=== PATIENT | male | born 1965 | race Caucasian/White ===

== ENCOUNTER 2017-02-18 21:18 | Inpatient (IN) | payer OTHER ==
--- NOTE | 2017-02-18 22:10 | HP ---
CIWA Score - CIWA Score Nausea/Vomitin Muscle Tremors: 4-Moderate,w/Arms Extend Anxiety: 3 Agitation: 5 Paroxysmal Sweats: 4-Forehead w/Sweat Beads Orientation: 1-Uncertain about Date Tacttile Disturbances: 2-Mild Itch/Numbness/Burn Auditory Disturbances: 2-Mild Harshness/Frighten Visual Disturbances: 2-Mild Sensitivity Headache: 2-Mild CIWA-Ar Total Score: 27 Admission ROS BHS - HPI Chief Complaint: DEPENDENT ON ETOH AND COCCAINE HIS FRIEND GAVE A TABLET OF ? BENZO. YESTERDAY Allergies/Adverse Reactions: Allergies Allergy/AdvReac Type Severity Reaction Status Date / Time No Known Allergies Allergy Verified 03/29/16 14:38 History of Present Illness: THE PT. IS REQUESTING ADMISSION TO THE DETOX UNIT AND CAME FOR H AND PE Exam Limitations: Intoxication - Ebola screening Have you traveled outside of the country in the last 21 days: No (N) Have you had contact with anyone from an Ebola affected area: No Do you have a fever: No - Review of Systems Constitutional: See HPI, Malaise, Weakness EENT: reports: See HPI Respiratory: reports: See HPI Cardiac: reports: See HPI, Syncope GI: reports: See HPI, Nausea, Vomiting, Abdominal cramping : reports: See HPI Musculoskeletal: reports: See HPI, Muscle Pain, Muscle Weakness Integumentary: reports: See HPI, Flushing, Sweating Neuro: reports: See HPI, Headache, Tremors, Weakness, Unsteady Gait Endocrine: reports: See HPI Hematology: reports: See HPI Psychiatric: reports: Agitated, Anxious, Depressed Patient History - Patient Medical History Hx Anemia: No Hx Asthma: No Hx Chronic Obstructive Pulmonary Disease (COPD): No Hx Cancer: No Hx Cardiac Disorders: Yes (HAD BACTERIAL ENDOCARDITIS IN ) Hx Congestive Heart Failure: No Hx Hypertension: No Hx Hypercholesterolemia: No Hx Pacemaker: No HX Cerebrovascular Accident: No Hx Seizures: No (FREQUENT EPISODES OF SYNCOPE) Hx Dementia: No Hx Diabetes: No Hx Gastrointestinal Disorders: No Hx Liver Disease: No Hx Genitourinary Disorders: No Hx Sexually Transmitted Disorders: No Hx Renal Disease (ESRD): No Hx Thyroid Disease: No Hx Human Immunodeficiency Virus (HIV): No (negative) Hx Hepatitis C: Yes Hx Depression: No Hx Suicide Attempt: No Hx Bipolar Disorder: No Hx Schizophrenia: No - Patient Surgical History Past Surgical History: Yes Hx Abdominal Surgery: Yes (gallbladder removed) Hx Cholecystectomy: Yes (2013) - PPD History Date: 03/31/16 - Smoking Cessation Smoking history: Current every day smoker Have you smoked in the past 12 months: Yes Aproximately how many cigarettes per day: 40 Hx Chewing Tobacco Use: No Initiated information on smoking cessation: Yes 'Breaking Loose' booklet given: 02/18/17 - Substance & Tx. History Hx Alcohol Use: Yes Hx Substance Use: Yes Substance Use Type: Alcohol, Cocaine Hx Substance Use Treatment: Yes - Substances Abused Alcohol Route: Oral Frequency: Daily Amount used: 12-24 CANS OF BEER AND 3 PINTS OF LIQUOR/D Age of first use: 12 Date of Last Use: 02/18/17 Cocaine Route: Smoking Frequency: Daily Amount used: UPTO $80/D Age of first use: 12 Date of Last Use: 02/17/17 Family Disease History - Family Disease History Family History: Denies Admission Physical Exam [facility] - Physical General Appearance: Yes: No Apparent Distress, Nourished, Appropriately Dressed , Alcohol on Breath, Intoxicated, Tremorous, Irritable, Sweating, Anxious HEENTM: Yes: Hearing grossly Normal, Normocephalic, Normal Voice, ADAN, Pharynx Normal Respiratory: Yes: Chest Non-Tender, Lungs Clear, Normal Breath Sounds, No Respiratory Distress, No Accessory Muscle Use Neck: Yes: No masses,lesions,Nodules, Supple, Trachea in good position Breast: Yes: Breast Exam Deferred Cardiology: Yes: Regular Rhythm, S1, S2, Tachycardia Abdominal: Yes: Normal Bowel Sounds, Non Tender, Soft Back: Yes: Normal Inspection Musculoskeletal: Yes: full range of Motion, Muscle Pain, Muscle weakness Extremities: Yes: Normal Capillary Refill, Non-Tender, Tremors Neurological: Yes: Alert, Motor Strength 5/5, Confused, Depressed Affect Integumentary: Yes: Warm, Moist Lymphatic: Yes: Within Normal Limits - Addiitonal Findings: THE PT. IS CONFUSED AND DISORIENTED NOW AND THEN HE IS INTOXICATED WITH AN UNSTEADY GAIT - Diagnostic (1) Alcohol dependence with uncomplicated withdrawal Current Visit: Yes Status: Chronic (2) Cocaine dependence Current Visit: Yes Status: Chronic Qualifiers: Substance use status: uncomplicated Qualified Code(s): F14.20 - Cocaine dependence, uncomplicated (3) Nicotine dependence Current Visit: Yes Status: Chronic Qualifiers: Nicotine product type: cigarettes Substance use status: uncomplicated Qualified Code(s): F17.210 - Nicotine dependence, cigarettes, uncomplicated (4) Hepatitis C Current Visit: No Status: Chronic Qualifiers: Viral hepatitis chronicity: chronic Hepatic coma status: without hepatic coma Qualified Code(s): B18.2 - Chronic viral hepatitis C Cleared for Admission BHS - Detox or Rehab S Level of Care: Medically Managed Detox Regimen/Protocol: Librium BHS Breath Alcohol Content Breath Alcohol Content: 0.336 Vital Signs - Vital Signs Vital Signs Refused: No Temperature: 98.0 F Temperature Source: Oral Pulse Rate: 93 Respiratory Rate: 16 Blood Pressure: 129/85 BP Location: Left Arm Blood Pressure Position: Sitting - Height Height: 5 ft 9 in - Weight Weight: 185 lb Weight Measurement Method: Estimated by Patient Body Mass Index (BMI): 27.3 Urine Drug Screen - Test Device Lot Number: [id number] Expiration Date: 10/25/18 - Control Is Test Valid: Yes - Results Drug Screen Negative: No Urine Drug Screen Results: DANUTA-Cocaine, BZO-Benzodiazepines
[2017-02-18 22:19] VITALS: BMI 27.3
[2017-02-18] MEDS ORDERED: NICOTINE POLACRILEX 4 MG GUM BUC PRN (22:19)
[2017-02-18] MEDS ORDERED: P-EPHED 60MG/TRIPROLIDI 2.5MG TABLET PO PRN (22:19)
[2017-02-18] MEDS ORDERED: guaiFENesin/D-METHORPHAN HB 10 ML UNIT-DOSE CUPS PO PRN (22:19)
[2017-02-18] MEDS ORDERED: LOPERAMIDE HCL 2 MG CAPSULE PO PRN (22:19)
[2017-02-18] MEDS ORDERED: MENTHOL/PHENOL 1 EACH UD MM PRN (22:19)
[2017-02-18] MEDS ORDERED: IBUPROFEN 400 MG TABLET (FP) PO PRN (22:19)
[2017-02-18] MEDS ORDERED: MAG HYDROX/AL HYDROX/SIMETH 30 ML UNIT-DOSE CUP PO PRN (22:19)
[2017-02-18] MEDS ORDERED: hydrOXYzine PAMOATE 50 MG CAPSULE (FP) PO PRN (22:19)
[2017-02-18] MEDS ORDERED: MAGNESIUM HYDROX 2400MG/30ML ORAL SUSPENSION 30 ML CUP PO PRN (22:19)
[2017-02-18] MEDS ORDERED: NICOTINE 10 MG CARTRIDGE (INHALER) IH PRN (22:19)
[2017-02-18] MEDS ORDERED: ACETAMINOPHEN 325 MG TABLET (FP) PO PRN (22:19)
[2017-02-18] MEDS ORDERED: MAGNESIUM CITRATE 300 ML BOTTLE PO PRN (22:19)
[2017-02-18] MEDS ORDERED: chlordiazePOXIDE HCL 25 MG CAPSULE PO ONE (22:21)
[2017-02-19] MEDS: chlordiazePOXIDE HCL 25 MG CAPSULE PO PRN ×2 (03:46→12:45)
[2017-02-19] MEDS: chlordiazePOXIDE HCL 25 MG CAPSULE PO SCH ×5 (06:12→22:08)
[2017-02-19 09:31] LABS: MCH 32.9 pg (25.7-33.7); MCHC 33.7 g/dl (32.0-35.9); MEAN CELL VOLUME 97.6 fl (80-96); MEAN PLT VOLUME 10.5 fl (7.5-11.1); PLATELET COUNT 110 K/MM3 (134-434); RDW 14.3 % (11.9-15.9); WHITE BLOOD COUNT 6.2 K/mm3 (4.0-10.0)
[2017-02-19 09:39] LABS: ALBUMIN 3.8 g/dl (3.4-5.0); ANION GAP 12 (8-16); CALCIUM 8.3 mg/dL (8.5-10.1); CO2 23 mmol/L (21-32); GLUCOSE,RANDOM 93 mg/dL (74-106); SGPT/ALT 167 U/L (12-78)
[2017-02-19 09:42] LABS: ALK PHOS 67 U/L (45-117); BILIRUBIN,TOTAL 0.6 mg/dL (0.2-1.0); CREATININE 0.8 mg/dL (0.7-1.3); SGOT/AST 112 U/L (15-37); TOT PROT 7.2 g/dl (6.4-8.2)
[2017-02-19] MEDS: PRENATAL VITAMINS W/ FOLIC ACID TABLET (FP) PO SCH (10:41)
[2017-02-19] MEDS: NICOTINE 21 MG/24 HOURS TOPICAL PATCH TD SCH (10:43)
--- NOTE | 2017-02-19 19:00 | PN ---
S CIWA - CIWA Score Nausea/Vomitin-Mild Nausea/No Vomiting Muscle Tremors: 4-Moderate,w/Arms Extend Anxiety: 4-Mod. Anxious/Guarded Agitation: 3 Paroxysmal Sweats: 3 Orientation: 0-Oriented Tacttile Disturbances: 0-None Auditory Disturbances: 0-None Visual Disturbances: 0-None Headache: 0-None Present CIWA-Ar Total Score: 15 BHS Progress Note (SOAP) Subjective: sweating,interrupted sleep restless,tremors,anxiety Objective: 02/19/17 18:58 Vital Signs - 8 hr 02/19/17 02/19/17 02/19/17 11:14 13:46 17:52 Temperature 97.5 F L 98.1 F 97.9 F Pulse Rate 80 76 76 Respiratory 18 18 18 Rate Blood Pressure 135/91 141/78 117/58 Laboratory Tests 02/19/17 02/19/17 02/19/17 06:20 06:20 06:20 WBC 6.2 D RBC 4.70 Hgb 15.4 Hct 45.9 MCV 97.6 H MCHC 33.7 RDW 14.3 Plt Count 110 L D MPV 10.5 Sodium 142 Potassium 3.7 Chloride 107 Carbon Dioxide 23 Anion Gap 12 BUN 9 Creatinine 0.8 D Creat Clearance w eGFR > 60 Random Glucose 93 Calcium 8.3 L Total Bilirubin 0.6 AST 112 H D ALT 167 H D Alkaline Phosphatase 67 D Total Protein 7.2 Albumin 3.8 RPR Titer Nonreactive labs noted Assessment: 02/19/17 18:59 Withdrawal sx. Plan: Continue detox
[2017-02-19] MEDS: diphenhydrAMINE HCL 50 MG CAPSULE PO PRN (22:08)
[2017-02-19] MEDS: THIAMINE HCL 100 MG TABLET (FP) PO SCH (22:08)
[2017-02-20] MEDS: chlordiazePOXIDE HCL 25 MG CAPSULE PO SCH ×3 (05:38→17:57)
[2017-02-20] MEDS: NICOTINE 21 MG/24 HOURS TOPICAL PATCH TD SCH (10:11)
[2017-02-20] MEDS: PRENATAL VITAMINS W/ FOLIC ACID TABLET (FP) PO SCH (10:11)
--- NOTE | 2017-02-20 11:08 | EKG ---
Test Reason : Blood Pressure : / mmHG Vent. Rate : 089 BPM Atrial Rate : 089 BPM P-R Int : 138 ms QRS Dur : 096 ms QT Int : 364 ms P-R-T Axes : 045 -06 041 degrees QTc Int : 442 ms NORMAL SINUS RHYTHM POSSIBLE LEFT ATRIAL ENLARGEMENT RSR' PATTERN IN V1 POSSIBLE ANTERIOR INFARCT , AGE UNDETERMINED ABNORMAL ECG NO PREVIOUS ECGS AVAILABLE Confirmed by ITA GRAMAJO MD ([id number]) on 02/20/2017 11:08:16 AM Referred By: Confirmed By:ITA GRAMAJO MD
--- NOTE | 2017-02-20 15:49 | PN ---
[facility] CIWA - CIWA Score Nausea/Vomitin-Mild Nausea/No Vomiting Muscle Tremors: 4-Moderate,w/Arms Extend Anxiety: 2 Agitation: 4-Moderately Restless Paroxysmal Sweats: 3 Orientation: 2-Disoriented Date<2 days Tacttile Disturbances: 3-Moderate Itch/Numb/Burn Auditory Disturbances: 2-Mild Harshness/Frighten Visual Disturbances: 0-None Headache: 0-None Present CIWA-Ar Total Score: 21 BHS Progress Note (SOAP) Subjective: Tremors, Sweating, Diarrhea, Interrupted Sleep. Objective: PT. A & O X 2 (DISORIENTED ABOUT DAY/ DATE). 02/20/17 15:45 Vital Signs Temperature 98.0 F 02/20/17 15:41 Pulse Rate 80 02/20/17 15:41 Respiratory Rate 16 02/20/17 15:41 Blood Pressure 120/80 02/20/17 15:41 O2 Sat by Pulse Oximetry (%) Laboratory Tests 02/19/17 02/19/17 02/19/17 06:20 06:20 06:20 WBC 6.2 D RBC 4.70 Hgb 15.4 Hct 45.9 MCV 97.6 H MCHC 33.7 RDW 14.3 Plt Count 110 L D MPV 10.5 Sodium 142 Potassium 3.7 Chloride 107 Carbon Dioxide 23 Anion Gap 12 BUN 9 Creatinine 0.8 D Creat Clearance w eGFR > 60 Random Glucose 93 Calcium 8.3 L Total Bilirubin 0.6 AST 112 H D ALT 167 H D Alkaline Phosphatase 67 D Total Protein 7.2 Albumin 3.8 RPR Titer Nonreactive LABS NOTED. Assessment: 02/20/17 15:48 WITHDRAWAL SYMPTOMS. Plan: CONTINUE DETOX. HEPATIC FUNCTION PANEL ORDERED FOR ELEVATED ADMISSION LIVER ENZYME VALUES. PRN IMMODIUM FOR DIARRHEA.
[2017-02-20] MEDS: THIAMINE HCL 100 MG TABLET (FP) PO SCH (22:07)
[2017-02-20] MEDS: chlordiazePOXIDE 5 MG CAPSULE PO SCH (22:08)
[2017-02-20] MEDS: diphenhydrAMINE HCL 50 MG CAPSULE PO PRN (22:09)
[2017-02-21] MEDS: chlordiazePOXIDE HCL 25 MG CAPSULE PO PRN (00:35)
[2017-02-21] MEDS: diphenhydrAMINE HCL 50 MG CAPSULE PO PRN (00:35)
[2017-02-21] MEDS: chlordiazePOXIDE 5 MG CAPSULE PO SCH ×3 (05:40→17:22)
--- NOTE | 2017-02-21 10:04 | PN ---
BHS Progress Note (SOAP) Subjective: irritable sweats agitation Objective: 02/21/17 10:04 Vital Signs Temperature 98.1 F 02/21/17 09:44 Pulse Rate 68 02/21/17 09:44 Respiratory Rate 16 02/21/17 09:44 Blood Pressure 117/82 02/21/17 09:44 O2 Sat by Pulse Oximetry (%) Laboratory Tests 02/19/17 02/19/17 02/19/17 06:20 06:20 06:20 WBC 6.2 D RBC 4.70 Hgb 15.4 Hct 45.9 MCV 97.6 H MCHC 33.7 RDW 14.3 Plt Count 110 L D MPV 10.5 Sodium 142 Potassium 3.7 Chloride 107 Carbon Dioxide 23 Anion Gap 12 BUN 9 Creatinine 0.8 D Creat Clearance w eGFR > 60 Random Glucose 93 Calcium 8.3 L Total Bilirubin 0.6 AST 112 H D ALT 167 H D Alkaline Phosphatase 67 D Total Protein 7.2 Albumin 3.8 RPR Titer Nonreactive u/a ordered awake/alert ambulating no acute distress Assessment: 02/21/17 10:05 withdrawal sx Plan: continue detox increase fluids u/a result pending d/c in am
[2017-02-21] MEDS: PRENATAL VITAMINS W/ FOLIC ACID TABLET (FP) PO SCH (10:41)
[2017-02-21] MEDS: NICOTINE 21 MG/24 HOURS TOPICAL PATCH TD SCH (10:42)
[2017-02-21 12:17] LABS: ALBUMIN 3.5 g/dl (3.4-5.0); BILIRUBIN,DIRECT 0.3 mg/dL (0.0-0.2)
[2017-02-21 12:18] LABS: TOT PROT 6.6 g/dl (6.4-8.2)
--- NOTE | 2017-02-21 14:08 | CONSULT ---
[facility] Psychiatric Consult - Data Date of interview: 02/21/17 Admission source: [facility] Identifying data: Readmission to [facility] for this 51 y/o male seeking detox treatment,on ,for alcohol and cocaine dependence.Patient is ,a father of one,homeless,unemployed and dependent on friends for financial support. Substance Abuse History: - Smoking Cessation. Smoking history: Current every day smoker. Have you smoked in the past 12 months: Yes. Aproximately how many cigarettes per day: 40. Hx Chewing Tobacco Use: No. Initiated information on smoking cessation: Yes. 'Breaking Loose' booklet given: 02/18/17. - Substance & Tx. History. Hx Alcohol Use: Yes. Hx Substance Use: Yes. Substance Use Type : Alcohol, Cocaine. Hx Substance Use Treatment: Yes. - Substances Abused. Alcohol. Route: Oral. Frequency: Daily. Amount used: 12-24 CANS OF BEER AND 3 PINTS OF LIQUOR/D. Age of first use: 12. Date of Last Use: 02/18/17. Cocaine. Route: Smoking. Frequency: Daily. Amount used: UPTO $80/D. Age of first use: 12. Date of Last Use: 02/17/17. Confirmed by patient. Medical History: Hepatitis C and a remote history of endocarditis () .Noted history of cholecystectomy. Psychiatric History: Patient denies history of psychiatric hospitalizations in this interview.Mr Pineda is an unreliable historian.He provided,to this screen writer,a totally different historical version at a previous encounter. As follows (imported note) : More than 15 psychiatric hospitalizations in his lifetime.Onset of psychiatric meltdown is reported as having occurred at age 21 (admission to [facility]).Diagnosis not recalled by the patient."I have no idea".Most recent hospitalization took place,two months ago,at [facility] (reason not offered).Mr Pineda reports no affiliation with [facility] care providers."I used to be on psychiatric medications years ago,like thorazine,but I grew out of these stuff and I have no intention to return to this mess."Clear and unambiguous declaration of disinterest for psychotropic medications and outpatient follow-up.Noted reported history of suicide attempt via self- mutilation three months ago (wrist-cutting).End of imported note.Mr Rao denies OPD care.Expresses no interest in resuming psychotropic medications other than detox drugs. Physical/Sexual Abuse/Trauma History: Patient denies history of abuse. Additional Comment: Urine Drug Screen Results: DANUTA-Cocaine, BZO- Benzodiazepines.Noted. Mental Status Exam - Mental Status Exam Alert and Oriented to: Time, Place, Person Cognitive Function: Good Patient Appearance: Unkempt, Disheveled Mood: Hopeful, Euthymic Affect: Normal Range Patient Behavior: Fatigued, Appropriate, Cooperative Speech Pattern: Clear Voice Loudness: Normal Thought Process: Goal Oriented Thought Disorder: Not Present Hallucinations: Denies Suicidal Ideation: Denies Homicidal Ideation: Denies Insight/Judgement: Poor Sleep: Fair Appetite: Good Muscle strength/Tone: Normal Gait/Station: Normal Psychiatric Findings - Problem List ([place] 1, 2,3) (1) Alcohol dependence with uncomplicated withdrawal Current Visit: Yes Status: Acute (2) Cocaine dependence Current Visit: Yes Status: Acute Qualifiers: Substance use status: uncomplicated Qualified Code(s): F14.20 - Cocaine dependence, uncomplicated (3) Nicotine dependence Current Visit: Yes Status: Acute Qualifiers: Nicotine product type: cigarettes Substance use status: uncomplicated Qualified Code(s): F17.210 - Nicotine dependence, cigarettes, uncomplicated (4) Substance induced mood disorder Current Visit: Yes Status: Acute (5) Hepatitis C Current Visit: Yes Status: Chronic Qualifiers: Viral hepatitis chronicity: chronic Hepatic coma status: without hepatic coma Qualified Code(s): B18.2 - Chronic viral hepatitis C (6) Insomnia Current Visit: Yes Status: Acute Qualifiers: Insomnia type: alcohol-induced Qualified Code(s): F10.982 - Alcohol use, unspecified with alcohol-induced sleep disorder - Initial Treatment Plan Initial Treatment Plan: Psychoeducation.Detoxification.Observation.
[2017-02-21 18:41] LABS: URINE APPEARANCE CLEAR; URINE BILIRUBIN NEGATIVE (NEGATIVE); URINE BLOOD NEGATIVE (NEGATIVE); URINE COLOR DKYELLOW; URINE GLUCOSE (UA) NEGATIVE (NEGATIVE); URINE KETONE NEGATIVE (NEGATIVE); URINE LEUK ESTERASE NEGATIVE (NEGATIVE); URINE NITRITE NEGATIVE (NEGATIVE); URINE PROTEIN NEGATIVE (NEGATIVE); URINE UROBILINOGEN 4.0 E.U/dl E.U./dl (0.2-1.0)
[2017-02-21] MEDS: chlordiazePOXIDE HCL 10 MG CAPSULE PO SCH (22:08)
[2017-02-21] MEDS: THIAMINE HCL 100 MG TABLET (FP) PO SCH (22:08)
[2017-02-22] MEDS: chlordiazePOXIDE HCL 10 MG CAPSULE PO SCH (06:09)
[2017-02-22 06:48] VITALS: BP 100/68; PULSE 63; TEMP 96.3
--- NOTE | 2017-02-22 09:15 | DS ---
[facility] Detox Discharge Summary Admission Date: 02/18/17 Discharge Date: 02/22/17 - History Present History: Alcohol Dependence, Cocaine Dependence - Physical Exam Results Vital Signs: Vital Signs Temperature 96.3 F L 02/22/17 06:00 Pulse Rate 63 02/22/17 06:00 Respiratory Rate 18 02/22/17 06:00 Blood Pressure 100/68 02/22/17 06:00 O2 Sat by Pulse Oximetry (%) - Treatment Hospital Course: Detox Protocol Followed, Detoxed Safely, Responded well, Discharged Condition Good - Medication Discharge Medications: Ambulatory Orders Neurontin 02/19/17 Zoloft 02/19/17 Gabapentin [Neurontin -] 300 mg PO TID #90 cap 02/22/17 Sertraline HCl [Zoloft -] 50 mg PO DAILY #30 tablet 02/22/17 - Diagnosis (1) Alcohol dependence with uncomplicated withdrawal Current Visit: Yes Status: Chronic (2) Cocaine dependence Current Visit: Yes Status: Chronic Qualifiers: Substance use status: uncomplicated Qualified Code(s): F14.20 - Cocaine dependence, uncomplicated (3) Nicotine dependence Current Visit: Yes Status: Chronic Qualifiers: Nicotine product type: cigarettes Substance use status: uncomplicated Qualified Code(s): F17.210 - Nicotine dependence, cigarettes, uncomplicated (4) Hepatitis C Current Visit: Yes Status: Chronic Qualifiers: Viral hepatitis chronicity: chronic Hepatic coma status: without hepatic coma Qualified Code(s): B18.2 - Chronic viral hepatitis C (5) Personality disorder, unspecified Current Visit: Yes Status: Chronic - AMA Did Patient Leave Against Medical Advice: No
[2017-02-22] MEDS ORDERED: SERTRALINE HCL 50 MG TABLET (FP) PO SCH (10:00)
[2017-02-22] MEDS: PRENATAL VITAMINS W/ FOLIC ACID TABLET (FP) PO SCH (10:09)
--- NOTE | 2017-02-22 10:14 | PN ---
Psychiatric Progress Note Vital Signs: Vital Signs Period Temp Pulse Resp BP Sys/Frias Pulse Ox Last 24 Hr 96.3 F-98.2 F 58-81 18-18 100-118/58-88 Date of Session: 02/22/17 Chief Complaint:: Insomnia HPI: Patient reprots insomnia, reports taking prior to admission : Zoloft 50mg po qd. Gabapentib 300mg po tid Current Medications: Active Medications Generic Name Dose Route Start Last Admin Trade Name Freq PRN Reason Stop Dose Admin Al Hydroxide/Mg Hydroxide 30 ml 02/18/17 22:19 Mylanta Oral Suspension - PO Q6H PRN DYSPEPSIA Chlordiazepoxide HCl 10 mg 02/21/17 23:00 02/22/17 06:09 Librium - PO 02/22/17 17:01 10 mg [id number] MEKA Administration Diphenhydramine HCl 50 mg 02/18/17 22:19 02/21/17 00:35 Benadryl - PO 50 mg HSMR1 PRN Administration INSOMNIA Eucalyptus/Menthol/Phenol/Sorbitol 1 each 02/18/17 22:19 Cepastat Lozenge - MM Q4H PRN SORE THROAT Gabapentin 300 mg 02/22/17 14:00 Neurontin - PO TID MEKA Guaifenesin 10 ml 02/18/17 22:19 Robitussin Dm - PO Q6H PRN COUGH Hydroxyzine Pamoate 50 mg 02/18/17 22:19 02/20/17 02:37 Vistaril - PO 50 mg Q4H PRN Administration AGITATION Ibuprofen 400 mg 02/18/17 22:19 Motrin - PO Q6H PRN SEVERE PAIN Loperamide HCl 4 mg 02/18/17 22:19 Imodium - PO Q6H PRN DIARRHEA Magnesium Citrate 300 ml 02/18/17 22:19 Citroma - PO Q48H PRN CONSTIPATION Magnesium Hydroxide 30 ml 02/18/17 22:19 Milk Of Magnesia - PO DAILY PRN CONSTIPATION Nicotine 10 mg 02/18/17 22:19 Nicotrol Inhaler - IH Q2H PRN NICOTINE REPLACEMENT RX Nicotine 21 mg 02/19/17 10:00 02/21/17 10:42 Nicoderm Patch - TD 21 mg DAILY MEKA Administration Nicotine Polacrilex 4 mg 02/18/17 22:19 Nicorette Gum - BUC Q2H PRN NICOTINE REPLACEMENT RX Multivit/Folic Acid/Iron 1 tab 02/19/17 10:00 02/22/17 10:09 Vitamins (Sjr) - PO 1 tab DAILY MEKA Administration Pseudoephedrine/Triprolidine 1 combo 02/18/17 22:19 Actifed - PO TID PRN NASAL CONGESTION Sertraline HCl 50 mg 02/22/17 10:00 Zoloft - PO DAILY MEKA Thiamine HCl 100 mg 02/19/17 22:00 02/21/17 22:08 Vitamin B1 - PO 100 mg HS MEKA Administration Medication(s) Change(s): Zoloft 50mg po qd. Gabapentib 300mg po tid Mental Status Exam - Mental Status Exam Alert and Oriented to: Person Cognitive Function: Fair Patient Appearance: Well Groomed Mood: Anxious Affect: Mood Congruent Patient Behavior: Cooperative Speech Pattern: Delayed Voice Loudness: Mildly Soft/Quiet Thought Process: Circumstantial Thought Disorder: Being Controlled Hallucinations: Denies Suicidal Ideation: Denies Homicidal Ideation: Denies Insight/Judgement: Fair Sleep: Difficulty falling asleep Muscle strength/Tone: Normal Gait/Station: Normal Additional Comments: Zoloft 50mg po qd. Gabapentib 300mg po tid Psychiatric Treatment Plan - Problem List (1) Substance induced mood disorder Current Visit: Yes (2) Alcohol dependence with uncomplicated withdrawal Current Visit: Yes (3) Cocaine dependence Current Visit: Yes Qualifiers: Substance use status: uncomplicated Qualified Code(s): F14.20 - Cocaine dependence, uncomplicated (4) Nicotine dependence Current Visit: Yes Qualifiers: Nicotine product type: cigarettes Substance use status: uncomplicated Qualified Code(s): F17.210 - Nicotine dependence, cigarettes, uncomplicated Initial treatment plan: Zoloft 50mg po qd. Gabapentib 300mg po tid
[2017-02-22] MEDS ORDERED: GABAPENTIN 300 MG CAPSULE (FP) PO SCH (14:00)
== END 2017-02-22 11:04 | disposition home or self-care (01) | DRG 774 ==
LOC: YASAS 21:18 → Y6N 22:04
PROVIDERS: ADMIT Internal Medicine; ATTEND Internal Medicine
PROC: HZ2ZZZZ Detoxification Services for Substance Abuse Treatment (ICD-10-PCS; principal; 2017-02-18)
DX: F10.230 Alcohol dependence with withdrawal, uncomplicated (principal); F14.20 Cocaine dependence, uncomplicated; F17.210 Nicotine dependence, cigarettes, uncomplicated; F10.282 Alcohol dependence with alcohol-induced sleep disorder; F19.24 Other psychoactive substance dependence with psychoactive substance-induced mood disorder; F60.9 Personality disorder, unspecified; B18.2 Chronic viral hepatitis C; R00.0 Tachycardia, unspecified; Z86.79 Personal history of other diseases of the circulatory system; Z59.0 Homelessness
CPT/HCPCS: 36415; 80053; 80076; 81003; 85027; 86593; 93005; 93010

== ENCOUNTER 2018-01-05 11:46 | Inpatient (IN) | payer OTHER ==
[2018-01-05 13:45] VITALS: BMI 28.3
--- NOTE | 2018-01-05 17:54 | HP ---
CIWA Score - CIWA Score Nausea/Vomitin-Int. Nausea w/Dry Heave Muscle Tremors: 1-None Visible, but [place] Anxiety: 3 Agitation: 3 Paroxysmal Sweats: 3 Orientation: 0-Oriented Tacttile Disturbances: 2-Mild Itch/Numbness/Burn Auditory Disturbances: 0-None Visual Disturbances: 0-None Headache: 0-None Present CIWA-Ar Total Score: 16 Admission [facility] Chief Complaint: ETOH withdrawal symptoms. Allergies/Adverse Reactions: Allergies Allergy/AdvReac Type Severity Reaction Status Date / Time No Known Allergies Allergy Verified 01/05/18 17:21 History of Present Illness: Pt presents for ETOH withdrawal symptoms. Started drinking ETOH at age 12. Drinks up to 8-24 ounce beers daily. Denies any seizures from withdrawal. Pt also uses crack/cocaine. Uses 2-4 bags daily. Last use of crack 2 days ago. Last drink 1/2 hour ago. Denies SI/suicide attempts. Has [facility] cirrhosis of liver , hepatitis c and pancreatitis. Hep C untreated. Went to [facility] ER yesterday for dog bite and was given Rabies shot. Reports receiving Librium in the ER. Pt attempted detox at [facility] 01/2017 but relapsed after discharge. Exam Limitations: Intoxication - Ebola screening Have you traveled outside of the country in the last 21 days: No (N) Have you had contact with anyone from an Ebola affected area: No Have you been sick,other than usual withdrawal symptoms: No Do you have a fever: No - Review of Systems Constitutional: Night Sweats, Changes in sleep, Weight Stable EENT: reports: Nose Congestion Respiratory: reports: Cough Cardiac: reports: Edema, Palpitations GI: reports: Abdominal Distended, Diarrhea, Nausea, Poor Fluid Intake, Vomiting : reports: No Symptoms Reported Musculoskeletal: reports: Back Pain, Joint Pain Integumentary: reports: Flushing, Sweating Neuro: reports: Tremors Endocrine: reports: [place] Hematology: reports: No Symptoms Reported Psychiatric: reports: Anxious, Depressed Patient History - Patient Medical History Hx Anemia: No Hx Asthma: No Hx Chronic Obstructive Pulmonary Disease (COPD): No Hx Cancer: No Hx Cardiac Disorders: No Hx Congestive Heart Failure: No Hx Hypertension: No Hx Hypercholesterolemia: No Hx Pacemaker: No HX Cerebrovascular Accident: No Hx Seizures: No Hx Dementia: No Hx Diabetes: No Hx Gastrointestinal Disorders: No (Acid reflux) Hx Liver Disease: Yes (Cirrhosis of Liver) Hx Genitourinary Disorders: No Hx Sexually Transmitted Disorders: No Hx Renal Disease (ESRD): No Hx Thyroid Disease: No Hx Human Immunodeficiency Virus (HIV): No (negative) Hx Hepatitis C: Yes Hx Depression: Yes Hx Suicide Attempt: No Hx Bipolar Disorder: No Hx Schizophrenia: Yes - Patient Surgical History Past Surgical History: Yes Hx Neurologic Surgery: No Hx Cataract Extraction: No Hx Cardiac Surgery: No Hx Lung Surgery: No Hx Breast Surgery: No Hx Breast Biopsy: No Hx Abdominal Surgery: Yes (gallbladder removed) Hx Appendectomy: No Hx Cholecystectomy: Yes (2013) Hx Genitourinary Surgery: No Hx Section: No Hx Orthopedic Surgery: No Anesthesia Reaction: No - PPD History Previous Implant?: Yes Documented Results: Negative w/o proof Date: 02/21/17 PPD to be Administered?: Yes - Smoking Cessation Smoking history: Current every day smoker Have you smoked in the past 12 months: Yes Aproximately how many cigarettes per day: 40 Hx Chewing Tobacco Use: No Initiated information on smoking cessation: Yes 'Breaking Loose' booklet given: 01/05/18 - Substance & Tx. History Hx Alcohol Use: Yes Hx Substance Use: Yes Substance Use Type: Alcohol, Cocaine - Substances Abused Alcohol Route: Oral Frequency: Daily Amount used: OZ Age of first use: 12 Date of Last Use: 01/04/18 Cocaine Route: Smoking Frequency: Daily Amount used: $40 Age of first use: 19 Date of Last Use: 01/02/18 Family Disease History - Family Disease History Family History: Denies Admission Physical Exam [facility] - Vital Signs Vital Signs: Vital Signs - 24 hr 01/05/18 13:41 Temperature 97.9 F Pulse Rate 86 Respiratory 20 Rate Blood Pressure 130/77 - Physical General Appearance: Yes: Disheveled, Alcohol on Breath, Tremorous, Anxious HEENTM: Yes: Hearing grossly Normal, Normal Voice, ADAN, Pharynx Normal Respiratory: Yes: Lungs Clear, Normal Breath Sounds, No Respiratory Distress, No Accessory Muscle Use Neck: Yes: No masses,lesions,Nodules, Supple Breast: Yes: Breast Exam Deferred Cardiology: Yes: Regular Rhythm, Regular Rate, S1, S2 Abdominal: Yes: Normal Bowel Sounds, Distended Genitourinary: Yes: Within Normal Limits Back: Yes: Muscle Spasm Musculoskeletal: Yes: Gait Steady, Back pain, Muscle Pain Extremities: Yes: Swelling Neurological: Yes: card cutter helper II-XII NML intact, Alert, Depressed Affect Integumentary: Yes: Dry, Warm Lymphatic: Yes: Within Normal Limits - Diagnostic (1) Depressed affect Current Visit: Yes Status: Acute (2) Alcohol dependence with uncomplicated withdrawal Current Visit: Yes Status: Chronic (3) Cocaine dependence Current Visit: Yes Status: Chronic Qualifiers: Substance use status: with unspecified cocaine-induced disorder Qualified Code(s): F14.29 - Cocaine dependence with unspecified cocaine-induced disorder (4) Hepatitis C Current Visit: Yes Status: Chronic Qualifiers: Viral hepatitis chronicity: chronic Hepatic coma status: without hepatic coma Qualified Code(s): B18.2 - Chronic viral hepatitis C (5) Nicotine dependence Current Visit: Yes Status: Chronic Qualifiers: Nicotine product type: cigarettes Substance use status: uncomplicated Qualified Code(s): F17.210 - Nicotine dependence, cigarettes, uncomplicated (6) Cirrhosis of liver Current Visit: Yes Status: Acute Qualifiers: Hepatic cirrhosis type: unspecified hepatic cirrhosis Cleared for Admission [facility] - Detox or Rehab [facility] Level of Care: Medically Managed Detox Regimen/Protocol: Valium [facility] Breath Alcohol Content Breath Alcohol Content: 0 Urine Drug Screen - Results Drug Screen Negative: No Urine Drug Screen Results: DANUTA-Cocaine, BZO-Benzodiazepines, TCA-Tricyclic Antidepress Inpatient Rehab Admission - Initial Determination Are CD services needed?: Yes Free of communicable disease: Yes Not in need of hospitalization: Yes - Rehab Admission Criteria Previous failed treatment: Yes Poor recovery environment: Yes Comorbidities: Yes Lacks judgement: Yes
[2018-01-05] MEDS ORDERED: guaiFENesin/D-METHORPHAN HB 10 ML UNIT-DOSE CUPS PO PRN (18:11)
[2018-01-05] MEDS ORDERED: ACETAMINOPHEN 325 MG TABLET (FP) PO PRN (18:11)
[2018-01-05] MEDS ORDERED: IBUPROFEN 400 MG TABLET (FP) PO PRN (18:11)
[2018-01-05] MEDS ORDERED: NICOTINE POLACRILEX 2 MG GUM BC PRN (18:11)
[2018-01-05] MEDS ORDERED: MENTHOL/PHENOL 1 EACH UD MM PRN (18:11)
[2018-01-05] MEDS ORDERED: P-EPHED 60MG/TRIPROLIDI 2.5MG TABLET PO PRN (18:11)
[2018-01-05] MEDS ORDERED: hydrOXYzine PAMOATE 50 MG CAPSULE (FP) PO PRN (18:11)
[2018-01-05] MEDS ORDERED: LOPERAMIDE HCL 2 MG CAPSULE PO PRN (18:11)
[2018-01-05] MEDS ORDERED: MAGNESIUM HYDROX 2400MG/30ML ORAL SUSPENSION 30 ML CUP PO PRN (18:11)
[2018-01-05] MEDS ORDERED: MAG HYDROX/AL HYDROX/SIMETH 30 ML UNIT-DOSE CUP PO PRN (18:11)
[2018-01-05] MEDS ORDERED: MAGNESIUM CITRATE 300 ML BOTTLE PO PRN (18:11)
[2018-01-05] MEDS ORDERED: diazePAM 5 MG TABLET PO PRN (18:19)
[2018-01-05] MEDS ORDERED: diazePAM 5 MG TABLET PO ONE (19:00)
[2018-01-05 21:34] LABS: URINE APPEARANCE CLEAR; URINE BILIRUBIN NEGATIVE (<2.0 mg/dL); URINE BLOOD NEGATIVE (NEGATIVE); URINE COLOR DKYELLOW; URINE GLUCOSE (UA) NEGATIVE (NEGATIVE); URINE KETONE NEGATIVE (NEGATIVE); URINE LEUK ESTERASE NEGATIVE (NEGATIVE); URINE NITRITE NEGATIVE (NEGATIVE); URINE PROTEIN NEGATIVE (NEGATIVE)
[2018-01-05] MEDS: diazePAM 5 MG TABLET PO SCH (22:53)
[2018-01-05] MEDS: MELATONIN 5 MG TABLETS PO PRN (22:53)
[2018-01-05] MEDS: THIAMINE HCL 100 MG TABLET (FP) PO SCH (22:53)
--- NOTE | 2018-01-05 23:56 | PN ---
S Progress Note Note: Patient currently under treatment for rabies after dog bite. Patient had his first vaccine at the ED, pending second dose this Monday01/07/18.
[2018-01-06] MEDS: diazePAM 5 MG TABLET PO SCH ×3 (05:04→22:17)
[2018-01-06] MEDS: PRENATAL VITAMINS W/ FOLIC ACID TABLET (FP) PO SCH (10:16)
[2018-01-06] MEDS: NICOTINE 21 MG/24 HOURS TOPICAL PATCH TD SCH (10:16)
[2018-01-06 10:37] LABS: HEMATOCRIT 40.5 % (35.4-49); HEMOGLOBIN 13.6 GM/dL (11.7-16.9); MCH 31.8 pg (25.7-33.7); MCHC 33.5 g/dl (32.0-35.9); MEAN PLT VOLUME 10.2 fl (7.5-11.1); PLATELET COUNT 75 K/MM3 (134-434); RBC 4.26 M/mm3 (4.00-5.60); RDW 14.5 % (11.9-15.9); WHITE BLOOD COUNT 2.5 K/mm3 (4.0-10.0)
[2018-01-06 10:42] LABS: ALBUMIN 3.2 g/dl (3.4-5.0); ANION GAP 6 (8-16); BILIRUBIN,TOTAL 0.5 mg/dL (0.2-1.0); BLOOD UREA NITROGEN 11 mg/dL (7-18); CALCIUM 8.3 mg/dL (8.5-10.1); CHLORIDE 110 mmol/L (98-107); CO2 27 mmol/L (21-32); CREATININE 0.8 mg/dL (0.7-1.3); GLUCOSE,RANDOM 101 mg/dL (74-106); POTASSIUM 3.6 mmol/L (3.5-5.1); SGOT/AST 114 U/L (15-37); SGPT/ALT 103 U/L (12-78); SODIUM 143 mmol/L (136-145); TOT PROT 6.2 g/dl (6.4-8.2)
[2018-01-06 10:43] LABS: ALK PHOS 57 U/L (45-117)
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
--- NOTE | 2018-01-06 14:17 | PN ---
S CIWA - CIWA Score Nausea/Vomitin Muscle Tremors: None Anxiety: 4-Mod. Anxious/Guarded Agitation: 0-Normal Activity Paroxysmal Sweats: 3 Orientation: 0-Oriented Tacttile Disturbances: 3-Moderate Itch/Numb/Burn Auditory Disturbances: 0-None Visual Disturbances: 2-Mild Sensitivity Headache: 3-Moderate CIWA-Ar Total Score: 18 BHS Progress Note (SOAP) Subjective: Sweating, Stomach Cramping, Nausea, Diarrhea, H/A. Objective: PATIENT A & O X 3. NO ACUTE DISTRESS. 01/06/18 14:12 Vital Signs Temperature 96.5 F L 01/06/18 11:11 Pulse Rate 79 01/06/18 11:11 Respiratory Rate 20 01/06/18 11:11 Blood Pressure 137/90 01/06/18 11:11 O2 Sat by Pulse Oximetry (%) Laboratory Tests 01/05/18 01/06/18 01/06/18 18:40 07:50 07:50 WBC 2.5 L D RBC 4.26 Hgb 13.6 D Hct 40.5 MCV 95.0 MCH 31.8 MCHC 33.5 RDW 14.5 Plt Count 75 L D MPV 10.2 Sodium 143 Potassium 3.6 Chloride 110 H Carbon Dioxide 27 Anion Gap 6 L BUN 11 D Creatinine 0.8 Creat Clearance w eGFR > 60 Random Glucose 101 Calcium 8.3 L Total Bilirubin 0.5 D AST 114 H ALT 103 H D Alkaline Phosphatase 57 Total Protein 6.2 L Albumin 3.2 L Urine Color Dkyellow Urine Appearance Clear Urine pH 6.0 Ur Specific [place] 1.023 Urine Protein Negative Urine Glucose (UA) Negative Urine Ketones Negative Urine Blood Negative Urine Nitrite Negative Urine Bilirubin Negative Urine Urobilinogen 2.0 Ur Leukocyte Esterase Negative RPR Titer 01/06/18 07:50 WBC RBC Hgb Hct MCV MCH MCHC RDW Plt Count MPV Sodium Potassium Chloride Carbon Dioxide Anion Gap BUN Creatinine Creat Clearance w eGFR Random Glucose Calcium Total Bilirubin AST ALT Alkaline Phosphatase Total Protein Albumin Urine Color Urine Appearance Urine pH Ur Specific [place] Urine Protein Urine Glucose (UA) Urine Ketones Urine Blood Urine Nitrite Urine Bilirubin Urine Urobilinogen Ur Leukocyte Esterase RPR Titer Nonreactive LABS NOTED. Assessment: 01/06/18 14:13 WITHDRAWAL SYMPTOMS. Plan: CONTINUE DETOX. PATIENT HAS HISTORY OF LOW WBC AND PLATELET LEVELS ON PREVIOUS ADMISSIONS. REPEAT CBC, ALT, AST LEVELS ON 01/08/2018 FOR ADMISSION ABNORMALITIES. PATIENT WAS TREATED AT [facility] ER FOR DOG BITE ON 01/04/2018. PER INFORMATION GIVEN BY ER PHYSICIAN DR. REEDER FROM [facility] ER, PATIENT RECEIVED DOSE RABIES IMMUNEGLOBULIN AND FIRST DOSE OF RABIES VACCINATION AT TIME OF ER VISIT. PATIENT SCHEDULED TO RECEIVE SECOND DOSE OF RABIES VACCINATION TOMORROW, 01/07/2018 (DOSE ORDERED). PATIENT ADVISED TO FOLLOW-UP WITH [facility] FOR SUBSEQUENT DOSES OF VACCINATION. AUGMENTIN, 875 MG PO BID X 1-0 DAYS ALSO RECOMMENDED BY ER MEDICAL PROVIDER ( ORDERED).
[2018-01-06] MEDS: AMOX TR/POT CLAV 875MG/125MG TABLETS (FP) PO SCH (17:37)
[2018-01-06] MEDS ORDERED: LITHIUM CARBONATE 300 MG CAPSULE (FP) PO SCH (22:00)
[2018-01-06] MEDS: LITHIUM CARBONATE 300 MG CAPSULE (FP) PO SCH (22:17)
[2018-01-06] MEDS: THIAMINE HCL 100 MG TABLET (FP) PO SCH (22:17)
[2018-01-06] MEDS: OLANZapine 5 MG TABLET PO SCH (22:17)
[2018-01-07] MEDS ORDERED: RABIES VACCINE (PCEC)/PF 2.5 UNIT/VIAL IM ONE (10:00)
[2018-01-07] MEDS ORDERED: RABIES IMMUNE GLOBULIN 300 UNITS/2 ML VIAL IM ONE (10:00)
[2018-01-07] MEDS ORDERED: OLANZapine 5 MG TABLET PO SCH (10:00)
[2018-01-07] MEDS: AMOX TR/POT CLAV 875MG/125MG TABLETS (FP) PO SCH ×2 (10:24→17:12)
[2018-01-07] MEDS: NICOTINE 21 MG/24 HOURS TOPICAL PATCH TD SCH (10:24)
[2018-01-07] MEDS: diazePAM 5 MG TABLET PO SCH ×2 (10:24→22:16)
[2018-01-07] MEDS: PRENATAL VITAMINS W/ FOLIC ACID TABLET (FP) PO SCH (10:24)
[2018-01-07] MEDS: LITHIUM CARBONATE 300 MG CAPSULE (FP) PO SCH ×2 (10:24→22:17)
--- NOTE | 2018-01-07 11:09 | PN ---
S CIWA - CIWA Score Nausea/Vomitin-No Nausea/No Vomiting Muscle Tremors: 4-Moderate,w/Arms Extend Anxiety: 3 Agitation: 3 Paroxysmal Sweats: 3 Orientation: 0-Oriented Tacttile Disturbances: 0-None Auditory Disturbances: 0-None Visual Disturbances: 0-None Headache: 0-None Present CIWA-Ar Total Score: 13 BHS Progress Note (SOAP) Subjective: sweats shakes interrupted sleep body aches anxiety Objective: 01/07/18 11:08 Vital Signs Temperature 95.3 F L 01/07/18 11:01 Pulse Rate 56 L 01/07/18 11:01 Respiratory Rate 18 01/07/18 11:01 Blood Pressure 97/60 01/07/18 11:01 O2 Sat by Pulse Oximetry (%) Laboratory Tests 01/05/18 01/06/18 01/06/18 18:40 07:50 07:50 WBC 2.5 L D RBC 4.26 Hgb 13.6 D Hct 40.5 MCV 95.0 MCH 31.8 MCHC 33.5 RDW 14.5 Plt Count 75 L D MPV 10.2 Sodium 143 Potassium 3.6 Chloride 110 H Carbon Dioxide 27 Anion Gap 6 L BUN 11 D Creatinine 0.8 Creat Clearance w eGFR > 60 Random Glucose 101 Calcium 8.3 L Total Bilirubin 0.5 D AST 114 H ALT 103 H D Alkaline Phosphatase 57 Total Protein 6.2 L Albumin 3.2 L Urine Color Dkyellow Urine Appearance Clear Urine pH 6.0 Ur Specific [place] 1.023 Urine Protein Negative Urine Glucose (UA) Negative Urine Ketones Negative Urine Blood Negative Urine Nitrite Negative Urine Bilirubin Negative Urine Urobilinogen 2.0 Ur Leukocyte Esterase Negative RPR Titer 01/06/18 07:50 WBC RBC Hgb Hct MCV MCH MCHC RDW Plt Count MPV Sodium Potassium Chloride Carbon Dioxide Anion Gap BUN Creatinine Creat Clearance w eGFR Random Glucose Calcium Total Bilirubin AST ALT Alkaline Phosphatase Total Protein Albumin Urine Color Urine Appearance Urine pH Ur Specific [place] Urine Protein Urine Glucose (UA) Urine Ketones Urine Blood Urine Nitrite Urine Bilirubin Urine Urobilinogen Ur Leukocyte Esterase RPR Titer Nonreactive aaox3 ambulating no acute distress Assessment: 01/07/18 11:10 withdrawal sx Plan: continue detox increase fluids tigan IM x one tigan po prn
[2018-01-07] MEDS: THIAMINE HCL 100 MG TABLET (FP) PO SCH (22:17)
[2018-01-07] MEDS: OLANZapine 5 MG TABLET PO SCH (22:17)
[2018-01-08] MEDS: AMOX TR/POT CLAV 875MG/125MG TABLETS (FP) PO SCH ×2 (07:45→17:04)
[2018-01-08 09:56] LABS: BASO % 0.8 % (0-2.0); HEMATOCRIT 43.1 % (35.4-49); HEMOGLOBIN 14.5 GM/dL (11.7-16.9); LYMPH % 29.7 % (8-40); MCH 32.3 pg (25.7-33.7); MCHC 33.6 g/dl (32.0-35.9); MEAN CELL VOLUME 96.1 fl (80-96); MEAN PLT VOLUME 10.4 fl (7.5-11.1); MONO % 9.1 % (3.8-10.2); NEUT % 56.4 % (42.8-82.8); PLATELET COUNT 79 K/MM3 (134-434); RBC 4.48 M/mm3 (4.00-5.60); RDW 14.8 % (11.9-15.9); WHITE BLOOD COUNT 4.1 K/mm3 (4.0-10.0)
[2018-01-08 10:10] LABS: SGOT/AST 138 U/L (15-37); SGPT/ALT 159 U/L (12-78)
[2018-01-08] MEDS: LITHIUM CARBONATE 300 MG CAPSULE (FP) PO SCH ×2 (10:19→22:07)
[2018-01-08] MEDS: PRENATAL VITAMINS W/ FOLIC ACID TABLET (FP) PO SCH (10:19)
[2018-01-08] MEDS: NICOTINE 21 MG/24 HOURS TOPICAL PATCH TD SCH (10:20)
[2018-01-08] MEDS: diazePAM 5 MG TABLET PO SCH ×2 (10:20→22:07)
--- NOTE | 2018-01-08 12:43 | EKG ---
Test Reason : Blood Pressure : / mmHG Vent. Rate : 072 BPM Atrial Rate : 072 BPM P-R Int : 124 ms QRS Dur : 100 ms QT Int : 416 ms P-R-T Axes : 063 -06 031 degrees QTc Int : 455 ms NORMAL SINUS RHYTHM POSSIBLE LEFT ATRIAL ENLARGEMENT BORDERLINE ECG WHEN COMPARED WITH ECG OF 18-FEB-2017 21:45, NO SIGNIFICANT CHANGE WAS FOUND Confirmed by SHA LACY MD ([id number]) on 01/08/2018 12:43:04 PM Referred By: Confirmed By:SHA LACY MD
--- NOTE | 2018-01-08 13:46 | PN ---
BHS Progress Note (SOAP) Subjective: Sweating, Fatigue, Interrupted Sleep. Objective: PATIENT A & O X 3. NO ACUTE DISTRESS. 01/08/18 13:44 Vital Signs Temperature 98.6 F 01/08/18 09:25 Pulse Rate 55 L 01/08/18 09:25 Respiratory Rate 18 01/08/18 09:25 Blood Pressure 107/59 01/08/18 09:25 O2 Sat by Pulse Oximetry (%) Laboratory Tests 01/05/18 01/06/18 01/06/18 18:40 07:50 07:50 WBC 2.5 L D RBC 4.26 Hgb 13.6 D Hct 40.5 MCV 95.0 MCH 31.8 MCHC 33.5 RDW 14.5 Plt Count 75 L D MPV 10.2 Neutrophils % Lymphocytes % Monocytes % Eosinophils % Basophils % Sodium 143 Potassium 3.6 Chloride 110 H Carbon Dioxide 27 Anion Gap 6 L BUN 11 D Creatinine 0.8 Creat Clearance w eGFR > 60 Random Glucose 101 Calcium 8.3 L Total Bilirubin 0.5 D AST 114 H ALT 103 H D Alkaline Phosphatase 57 Total Protein 6.2 L Albumin 3.2 L Urine Color Dkyellow Urine Appearance Clear Urine pH 6.0 Ur Specific [place] 1.023 Urine Protein Negative Urine Glucose (UA) Negative Urine Ketones Negative Urine Blood Negative Urine Nitrite Negative Urine Bilirubin Negative Urine Urobilinogen 2.0 Ur Leukocyte Esterase Negative RPR Titer 01/06/18 01/08/18 01/08/18 07:50 07:30 07:30 WBC 4.1 D RBC 4.48 Hgb 14.5 Hct 43.1 MCV 96.1 H MCH 32.3 MCHC 33.6 RDW 14.8 Plt Count 79 L MPV 10.4 Neutrophils % 56.4 Lymphocytes % 29.7 Monocytes % 9.1 Eosinophils % 4.0 Basophils % 0.8 Sodium Potassium Chloride Carbon Dioxide Anion Gap BUN Creatinine Creat Clearance w eGFR Random Glucose Calcium Total Bilirubin AST 138 H D ALT 159 H D Alkaline Phosphatase Total Protein Albumin Urine Color Urine Appearance Urine pH Ur Specific [place] Urine Protein Urine Glucose (UA) Urine Ketones Urine Blood Urine Nitrite Urine Bilirubin Urine Urobilinogen Ur Leukocyte Esterase RPR Titer Nonreactive LABS NOTED. Assessment: 01/08/18 13:44 WITHDRAWAL SYMPTOMS. Plan: CONTINUE DETOX. INCREASE DAILY PO FLUID INTAKE.
[2018-01-08] MEDS: THIAMINE HCL 100 MG TABLET (FP) PO SCH (22:07)
[2018-01-08] MEDS: OLANZapine 5 MG TABLET PO SCH (22:07)
[2018-01-09] MEDS: AMOX TR/POT CLAV 875MG/125MG TABLETS (FP) PO SCH ×2 (07:58→17:44)
[2018-01-09] MEDS ORDERED: diazePAM 5 MG TABLET PO SCH (10:00)
[2018-01-09] MEDS: PRENATAL VITAMINS W/ FOLIC ACID TABLET (FP) PO SCH (10:16)
[2018-01-09] MEDS: LITHIUM CARBONATE 300 MG CAPSULE (FP) PO SCH ×2 (10:16→22:16)
[2018-01-09] MEDS: NICOTINE 21 MG/24 HOURS TOPICAL PATCH TD SCH (10:16)
--- NOTE | 2018-01-09 14:12 | PN ---
BHS Progress Note (SOAP) Subjective: Fatigue, Sweating, Interrupted Sleep. Objective: PATIENT A & O X 3. NO ACUTE DISTRESS. 01/09/18 14:10 Vital Signs Temperature 97.1 F L 01/09/18 14:02 Pulse Rate 70 01/09/18 14:02 Respiratory Rate 16 01/09/18 14:02 Blood Pressure 98/67 01/09/18 14:02 O2 Sat by Pulse Oximetry (%) Laboratory Tests 01/05/18 01/06/18 01/06/18 18:40 07:50 07:50 WBC 2.5 L D RBC 4.26 Hgb 13.6 D Hct 40.5 MCV 95.0 MCH 31.8 MCHC 33.5 RDW 14.5 Plt Count 75 L D MPV 10.2 Neutrophils % Lymphocytes % Monocytes % Eosinophils % Basophils % Sodium 143 Potassium 3.6 Chloride 110 H Carbon Dioxide 27 Anion Gap 6 L BUN 11 D Creatinine 0.8 Creat Clearance w eGFR > 60 Random Glucose 101 Calcium 8.3 L Total Bilirubin 0.5 D AST 114 H ALT 103 H D Alkaline Phosphatase 57 Total Protein 6.2 L Albumin 3.2 L Urine Color Dkyellow Urine Appearance Clear Urine pH 6.0 Ur Specific [place] 1.023 Urine Protein Negative Urine Glucose (UA) Negative Urine Ketones Negative Urine Blood Negative Urine Nitrite Negative Urine Bilirubin Negative Urine Urobilinogen 2.0 Ur Leukocyte Esterase Negative [place] RPR Titer 01/06/18 01/07/18 01/08/18 07:50 08:00 07:30 WBC 4.1 D RBC 4.48 Hgb 14.5 Hct 43.1 MCV 96.1 H MCH 32.3 MCHC 33.6 RDW 14.8 Plt Count 79 L MPV 10.4 Neutrophils % 56.4 Lymphocytes % 29.7 Monocytes % 9.1 Eosinophils % 4.0 Basophils % 0.8 Sodium Potassium Chloride Carbon Dioxide Anion Gap BUN Creatinine Creat Clearance w eGFR Random Glucose Calcium Total Bilirubin AST ALT Alkaline Phosphatase Total Protein Albumin Urine Color Urine Appearance Urine pH Ur Specific [place] Urine Protein Urine Glucose (UA) Urine Ketones Urine Blood Urine Nitrite Urine Bilirubin Urine Urobilinogen Ur Leukocyte Esterase [place] 0 L RPR Titer Nonreactive 01/08/18 07:30 WBC RBC Hgb Hct MCV MCH MCHC RDW Plt Count MPV Neutrophils % Lymphocytes % Monocytes % Eosinophils % Basophils % Sodium Potassium Chloride Carbon Dioxide Anion Gap BUN Creatinine Creat Clearance w eGFR Random Glucose Calcium Total Bilirubin AST 138 H D ALT 159 H D Alkaline Phosphatase Total Protein Albumin Urine Color Urine Appearance Urine pH Ur Specific [place] Urine Protein Urine Glucose (UA) Urine Ketones Urine Blood Urine Nitrite Urine Bilirubin Urine Urobilinogen Ur Leukocyte Esterase [place] RPR Titer LABS NOTED. Assessment: 01/09/18 14:11 WITHDRAWAL SYMPTOMS. Plan: CONTINUE DETOX. INCREASE DAILY PO FLUID INTAKE.
[2018-01-09] MEDS: OLANZapine 5 MG TABLET PO SCH (22:16)
[2018-01-09] MEDS: MELATONIN 5 MG TABLETS PO PRN (22:16)
[2018-01-09] MEDS: THIAMINE HCL 100 MG TABLET (FP) PO SCH (22:16)
[2018-01-10] MEDS: AMOX TR/POT CLAV 875MG/125MG TABLETS (FP) PO SCH (07:46)
[2018-01-10 09:07] VITALS: BP 122/78; PULSE 75; TEMP 97.1
--- NOTE | 2018-01-10 12:54 | PN ---
S Progress Note (SOAP) Subjective: Patient denies current Detox symptoms and reports that he feels well overall. Objective: PATIENT A & O X 3, OBSERVED AMBULATING ON UNIT. NO ACUTE DISTRESS. 01/10/18 12:53 Vital Signs Temperature 97.1 F L 01/10/18 09:06 Pulse Rate 75 01/10/18 09:06 Respiratory Rate 18 01/10/18 09:06 Blood Pressure 122/78 01/10/18 09:06 O2 Sat by Pulse Oximetry (%) Laboratory Tests 01/05/18 01/06/18 01/06/18 18:40 07:50 07:50 WBC 2.5 L D RBC 4.26 Hgb 13.6 D Hct 40.5 MCV 95.0 MCH 31.8 MCHC 33.5 RDW 14.5 Plt Count 75 L D MPV 10.2 Neutrophils % Lymphocytes % Monocytes % Eosinophils % Basophils % Sodium 143 Potassium 3.6 Chloride 110 H Carbon Dioxide 27 Anion Gap 6 L BUN 11 D Creatinine 0.8 Creat Clearance w eGFR > 60 Random Glucose 101 Calcium 8.3 L Total Bilirubin 0.5 D AST 114 H ALT 103 H D Alkaline Phosphatase 57 Total Protein 6.2 L Albumin 3.2 L Urine Color Dkyellow Urine Appearance Clear Urine pH 6.0 Ur Specific [place] 1.023 Urine Protein Negative Urine Glucose (UA) Negative Urine Ketones Negative Urine Blood Negative Urine Nitrite Negative Urine Bilirubin Negative Urine Urobilinogen 2.0 Ur Leukocyte Esterase Negative [place] RPR Titer 01/06/18 01/07/18 01/08/18 07:50 08:00 07:30 WBC 4.1 D RBC 4.48 Hgb 14.5 Hct 43.1 MCV 96.1 H MCH 32.3 MCHC 33.6 RDW 14.8 Plt Count 79 L MPV 10.4 Neutrophils % 56.4 Lymphocytes % 29.7 Monocytes % 9.1 Eosinophils % 4.0 Basophils % 0.8 Sodium Potassium Chloride Carbon Dioxide Anion Gap BUN Creatinine Creat Clearance w eGFR Random Glucose Calcium Total Bilirubin AST ALT Alkaline Phosphatase Total Protein Albumin Urine Color Urine Appearance Urine pH Ur Specific [place] Urine Protein Urine Glucose (UA) Urine Ketones Urine Blood Urine Nitrite Urine Bilirubin Urine Urobilinogen Ur Leukocyte Esterase [place] 0 L RPR Titer Nonreactive 01/08/18 07:30 WBC RBC Hgb Hct MCV MCH MCHC RDW Plt Count MPV Neutrophils % Lymphocytes % Monocytes % Eosinophils % Basophils % Sodium Potassium Chloride Carbon Dioxide Anion Gap BUN Creatinine Creat Clearance w eGFR Random Glucose Calcium Total Bilirubin AST 138 H D ALT 159 H D Alkaline Phosphatase Total Protein Albumin Urine Color Urine Appearance Urine pH Ur Specific [place] Urine Protein Urine Glucose (UA) Urine Ketones Urine Blood Urine Nitrite Urine Bilirubin Urine Urobilinogen Ur Leukocyte Esterase [place] RPR Titer LABS NOTED. Assessment: 01/10/18 12:53 COMPLETION OF DETOX REGIMEN. Plan: PATIENT SCHEDULED FOR DISCHARGE FROM DETOX UNIT TODAY.
--- NOTE | 2018-01-10 12:59 | DS ---
[facility] Detox Discharge Summary Admission Date: 01/05/18 Discharge Date: 01/10/18 - History Present History: Alcohol Dependence, Cocaine Dependence Additional Comments: PATIENT GOING HOME FOR TIME BEING TO ATTEND TO PERSONAL MATTER. PATIENT LIKELY ATTEND [facility] ([place], [place] FOR AFTERCARE. PATIENT ADVISED TO FOLLOW-UP AT [facility] ([place] EMERGENCY DEPARTMENT FOR NEXT INSTALLMENT OF RABIES VACCINATION ( WAS RECOMMENDED BY ER MEDICAL PROVIDER WHO INITIALLY TREATED HIM FOR DOG BITE LAST WEEK) AFTER DISCHARGE FROM DETOX UNIT. PATIENT DISCHARGE FROM DETOX UNIT IN STABLE MEDICAL CONDITION. Pertinent Past History: Depression, Bipolar Disorder, Nicotine Dependence, Hep C, Cirrhosis of Liver, History of Recent Dog Bite. - Physical Exam Results Vital Signs: Vital Signs Temperature 97.1 F L 01/10/18 09:06 Pulse Rate 75 01/10/18 09:06 Respiratory Rate 18 01/10/18 09:06 Blood Pressure 122/78 01/10/18 09:06 O2 Sat by Pulse Oximetry (%) Pertinent Admission Physical Exam Findings: WITHDRAWAL SYMPTOMS. Laboratory Tests 01/05/18 01/06/18 01/06/18 18:40 07:50 07:50 WBC 2.5 L D RBC 4.26 Hgb 13.6 D Hct 40.5 MCV 95.0 MCH 31.8 MCHC 33.5 RDW 14.5 Plt Count 75 L D MPV 10.2 Neutrophils % Lymphocytes % Monocytes % Eosinophils % Basophils % Sodium 143 Potassium 3.6 Chloride 110 H Carbon Dioxide 27 Anion Gap 6 L BUN 11 D Creatinine 0.8 Creat Clearance w eGFR > 60 Random Glucose 101 Calcium 8.3 L Total Bilirubin 0.5 D AST 114 H ALT 103 H D Alkaline Phosphatase 57 Total Protein 6.2 L Albumin 3.2 L Urine Color Dkyellow Urine Appearance Clear Urine pH 6.0 Ur Specific [place] 1.023 Urine Protein Negative Urine Glucose (UA) Negative Urine Ketones Negative Urine Blood Negative Urine Nitrite Negative Urine Bilirubin Negative Urine Urobilinogen 2.0 Ur Leukocyte Esterase Negative [place] RPR Titer 01/06/18 01/07/18 01/08/18 07:50 08:00 07:30 WBC 4.1 D RBC 4.48 Hgb 14.5 Hct 43.1 MCV 96.1 H MCH 32.3 MCHC 33.6 RDW 14.8 Plt Count 79 L MPV 10.4 Neutrophils % 56.4 Lymphocytes % 29.7 Monocytes % 9.1 Eosinophils % 4.0 Basophils % 0.8 Sodium Potassium Chloride Carbon Dioxide Anion Gap BUN Creatinine Creat Clearance w eGFR Random Glucose Calcium Total Bilirubin AST ALT Alkaline Phosphatase Total Protein Albumin Urine Color Urine Appearance Urine pH Ur Specific [place] Urine Protein Urine Glucose (UA) Urine Ketones Urine Blood Urine Nitrite Urine Bilirubin Urine Urobilinogen Ur Leukocyte Esterase [place] 0 L RPR Titer Nonreactive 01/08/18 07:30 WBC RBC Hgb Hct MCV MCH MCHC RDW Plt Count MPV Neutrophils % Lymphocytes % Monocytes % Eosinophils % Basophils % Sodium Potassium Chloride Carbon Dioxide Anion Gap BUN Creatinine Creat Clearance w eGFR Random Glucose Calcium Total Bilirubin AST 138 H D ALT 159 H D Alkaline Phosphatase Total Protein Albumin Urine Color Urine Appearance Urine pH Ur Specific [place] Urine Protein Urine Glucose (UA) Urine Ketones Urine Blood Urine Nitrite Urine Bilirubin Urine Urobilinogen Ur Leukocyte Esterase [place] RPR Titer LABS NOTED. - Treatment Hospital Course: Detox Protocol Followed, Detoxed Safely, Responded well, Discharged Condition Good Patient has Accepted a Rehab Referral to: [facility] ([place], [place] ). - Medication Discharge Medications: Ambulatory Orders Folic Acid - 1 mg PO DAILY 01/05/18 [place] Carbonate [Eskalith -] 600 mg PO DAILY 01/05/18 [place] Carbonate [Lithobid] 900 mg PO HS 01/05/18 Olanzapine [Zyprexa] 5 mg PO DAILY 01/05/18 [place] Carbonate [Eskalith -] 300 mg PO BID 01/06/18 - Diagnosis (1) Cirrhosis of liver Status: Acute Qualifiers: Hepatic cirrhosis type: unspecified hepatic cirrhosis Ascites presence: unspecified Qualified Code(s): K74.60 - Unspecified cirrhosis of liver (2) Depressed affect Status: Acute (3) Alcohol dependence with uncomplicated withdrawal Status: Acute (4) Cocaine dependence Status: Chronic Qualifiers: Substance use status: with unspecified cocaine-induced disorder Qualified Code(s): F14.29 - Cocaine dependence with unspecified cocaine-induced disorder (5) Hepatitis C Status: Chronic Qualifiers: Viral hepatitis chronicity: chronic Hepatic coma status: without hepatic coma Qualified Code(s): B18.2 - Chronic viral hepatitis C (6) Nicotine dependence Status: Chronic Qualifiers: Nicotine product type: cigarettes Substance use status: uncomplicated Qualified Code(s): F17.210 - Nicotine dependence, cigarettes, uncomplicated (7) Bipolar disorder Status: Chronic Qualifiers: Active/Remission status: remission status unspecified Qualified Code(s): F31.9 - Bipolar disorder, unspecified - AMA Did Patient Leave Against Medical Advice: No
== END 2018-01-10 10:02 | disposition home or self-care (01) | DRG 774 ==
LOC: YASAS 11:46 → Y3N 17:58
PROVIDERS: ADMIT Internal Medicine; ATTEND Internal Medicine
PROC: HZ2ZZZZ Detoxification Services for Substance Abuse Treatment (ICD-10-PCS; principal; 2018-01-05)
DX: F10.230 Alcohol dependence with withdrawal, uncomplicated (principal); F14.20 Cocaine dependence, uncomplicated; F17.210 Nicotine dependence, cigarettes, uncomplicated; F31.9 Bipolar disorder, unspecified; B18.2 Chronic viral hepatitis C; K74.60 Unspecified cirrhosis of liver; Z90.49 Acquired absence of other specified parts of digestive tract; Z59.0 Homelessness
CPT/HCPCS: 36415; 80053; 80178; 81003; 84450; 84460; 85025; 85027; 86593; 90675; 93005; 93010

== ENCOUNTER 2018-09-27 11:55 | Emergency (ER) | payer OTHER ==
[2018-09-27 12:28] VITALS: BP 116/71; PULSE 65; TEMP 98.1; BMI 25.1
== END 2018-09-27 13:30 | disposition home or self-care (01) ==
LOC: JERFT 11:55
DX: Z53.21 Procedure and treatment not carried out due to patient leaving prior to being seen by health care provider (principal)
CPT/HCPCS: 99281-25